=== PATIENT | male | born 1975 | race Hispanic/Latino ===

== ENCOUNTER 2025-09-05 04:15 | Emergency (ER) | payer OTHER, SELFPAY ==
[2025-09-05 04:24] VITALS: BP 133/84
--- NOTE | 2025-09-05 05:37 | ED.GENMED ---
History of Present Illness
General
Chief Complaint: Abdominal Pain
Source: patient and police
Exam Limitations: none
Time Seen by Provider: 09/05/25 04:52
History of Present Illness
History of Present Illness:
Note:
CHIEF COMPLAINT(S)
Mass identified on chest X-ray during in-processing at [facility].
HISTORY OF PRESENT ILLNESS
The patient is a 50-year-old male who was brought in by law enforcement officers during processing for [facility]. During this process, a chest X-ray was performed, and the attending nurse noted a 'mass' in the patients right upper abdomen. There are no
further details regarding the nature of this mass. The patient denies any current symptoms or complaints at this time. A computed tomography (CT) scan has been ordered for further evaluation of the finding on the X-ray.
PHYSICAL EXAM
General: Alert, no acute distress.
Skin: Warm, dry.
Head: Normocephalic, atraumatic.
Neck: Supple, trachea midline.
Eyes, Ears, Nose, Mouth, and Throat: Oral mucosa moist.
Cardiovascular: Normal peripheral perfusion, No edema.
Respiratory: Respirations are non-labored.
Gastrointestinal: Abdomen nondistended.
Back: Normal range of motion, Normal alignment.
Musculoskeletal: Normal range of motion, normal strength.
Neurological: Alert and oriented to person, place, time, and situation, No focal neurological deficit observed.
Psychiatric: Cooperative, appropriate mood & affect.
PLAN
A computed tomography (CT) scan has been ordered to further evaluate the mass identified in the patients right upper abdomen.
DIFFERENTIAL DIAGNOSIS
The Differential Diagnosis includes, in no particular order and is not limited to:
1. Hepatic mass
2. Hepatomegaly
3. Adrenal tumor
4. Rib lesion
5. Pulmonary nodule
6. Diaphragmatic hernia
7. Soft tissue mass
8. Lymphadenopathy
9. Splenomegaly
10. Gallbladder disease
Disposition:
SUMMARY OF ENCOUNTER
The patient, a 50-year-old male, was seen in the emergency department for medical clearance for incarceration. An X-ray conducted at the group home identified a possible mass or foreign body in the right upper quadrant. A CT scan was performed in the
emergency department, revealing a normal abdomen and pelvis with an incidental finding of esophageal reflux. Airways are of normal caliber with no acute osteoskeletal abnormality. The patient reported no symptoms or complaints during the visit.
DISPOSITION
The patient is to be discharged back to the group home.
ASSESSMENT
The incidental findings included esophageal reflux with no significant abnormalities in the abdomen and pelvis.
PLAN
The patient will be discharged back to the group home as no acute medical intervention is urgently required.
INDEPENDENT REVIEW OF LABS AND INTERPRETATION OF TESTS
My independent interpretation of the CT scan shows a normal abdomen and pelvis, with an incidental finding of esophageal reflux.
MEDICAL DECISION MAKING
1. Number and Complexity of Problems Addressed: DDx list includes hepatic mass, hepatomegaly, adrenal tumor, rib lesion, pulmonary nodule, diaphragmatic hernia, soft tissue mass, lymphadenopathy, splenomegaly, and gallbladder disease.
2. Data:
Category 1: CT scan was reviewed and interpreted.
3. Risk: Consideration of Admission/Observation: Escalation of care including admission/observation was considered given the complexity and risk of the patients presenting complaint, exam findings, and/or their underlying comorbidities. However,
ultimately I feel the patient is safe for outpatient management with close follow-up. Reasoning: Work-up reassuring, does not reveal any acute life/organ threatening processes, patients symptoms well controlled upon reevaluation, reexamination is
reassuring, vitals are stable, patient agreeable with discharge, reliable for follow-up.
DIAGNOSIS
Esophageal reflux (ICD-10: K21.9).
Phy Exam
Physical Exam
Physical Exam:
.
Course
Orders/Labs/Results
Orders:
Orders
09/05/25 04:23
CT Abd/pel Without Iv Or Oral Urgent
Reason For Exam: 'mass' right rib area per group home intake
Vital Signs
Initial and Last Documented VS:
Initial Vital Signs
Temp Pulse Resp Pulse Ox
97.8 F 74 18 97
09/05/25 04:19 09/05/25 04:19 09/05/25 04:19 09/05/25 04:19
Last Documented Vital Signs
Temp Pulse Resp BP Pulse Ox
97.8 F 74 18 133/84 97
09/05/25 04:19 09/05/25 04:19 09/05/25 04:19 09/05/25 04:24 09/05/25 04:19
*Radiology
Radiology exam reviewed: all reviewed NAD by ED Provider
*Pulse Oximetry
SaO2: 97
Oxygen Mode of Delivery: Room air
Patient hypoxic: no
*Critical Care Note
Total Time (30-74mins, 75-104mins- exclusive of procedures): Not Applicable
ED Attending Note
-
Portions of this chart may have been created with voice recognition software.� Occasional wrong word or��sound alike� substitutions may have occurred due to the inherent limitations of voice recognition software.
Discharge Plan
Departure
Patient Disposition: [facility]
Date of Disposition: 09/05/25
Time of Disposition: 05:38
Discharge Problem:
Checkup for incarceration
Instructions: Routine physical for adults
Activity Restrictions/Additional Instructions:
Patient medically cleared for incarceration
Interventions
Interventions:
*Risk Screen - Suicide Last Done: 09/05/25 04:59
*General Assessment Last Done: 09/05/25 04:59
*Neglect/Abuse Screening Last Done: 09/05/25 04:59
*ED- Fall Risk Assessment Last Done: 09/05/25 04:59
NQ-Evmihv-Cxnejyminv Assessment Last Done: 09/05/25 04:58
Discharge Date and Time
Print Language: ITALIAN
== END 2025-09-05 06:11 ==
LOC: EMR 04:15
PROVIDERS: EMERGENCY PHYSICIAN Student in an Organized Health Care Education/Training Program
DX: Z04.89 Encounter for examination and observation for other specified reasons (principal); K21.9 Gastro-esophageal reflux disease without esophagitis
CPT/HCPCS: 99285; 74176